=== PATIENT | male | born 1950 | race Caucasian/White ===

== ENCOUNTER 2020-09-24 08:43 | Observation (INO) ==
[2020-09-24 09:25] LABS: Basophils % 0.6 % (0.0-0.8); Eosinophils # 0.3 10*3/uL (0.0-0.87); Eosinophils % 3.9 % (0.00-10.9); Hematocrit 38.3 VOL% (42.0-52.0); Hemoglobin 13.5 GM/DL (14.0-18.0); Immature Granulocytes % 0.6 %; Immature Granulocytes Absolute 0.04 #; Lymphocytes # 1.7 10*3/uL (1.4-4.0); Lymphocytes % 25.7 % (21.2-54.2); Mean Corpuscular HGB Conc 35.2 GM/DL (32-36); Mean Corpuscular Volume 92.5 FL (87-102); Mean Platelet Volume 9.3 FL (9.6-12.0); Monocytes % 10.1 % (1.7-12.7); Neutrophils % 59.1 % (38.7-73.9); Platelet Count 190 T/CUMM (130-400); Red Blood Count 4.14 MC/CUMM (3.8-5.5); Red Cell Distribution Width 12.9 % (9.3-17.3); White Blood Count 6.4 T/CUMM (4-12)
[2020-09-24 09:37] LABS: PT Patient Result 10.8 SECS (9.8-11.9); Partial Thromboplastin Time 29.3 SECS (23.9-33.8)
[2020-09-24 09:47] LABS: Albumin 3.8 G/DL (3.4-5.0); Bilirubin,Total 0.5 MG/DL (0.2-1.0); Calcium 9.4 MG/DL (8.5-10.1); Osmolality,Calculated 279.7 MOS/KG (273-304); Total Protein 7.1 G/DL (6.4-8.3)
[2020-09-24] MEDS ORDERED: ENOXAPARIN 100 MG/ML SYRINGE SUBCUT STA (10:37)
[2020-09-24] MEDS ORDERED: ASPIRIN 325 MG TABLET PO STA (10:37)
[2020-09-24] MEDS ORDERED: ENOXAPARIN 60 MG/0.6 ML SYRINGE ONE (10:44)
[2020-09-24] MEDS ORDERED: ONDANSETRON 4 MG/2 ML VIAL IV PRN (12:09)
[2020-09-24] MEDS ORDERED: ZALEPLON 5 MG CAPSULE PO PRN (12:09)
[2020-09-24] MEDS ORDERED: hydrALAZINE 20 MG/1 ML VIAL IV PRN (12:09)
[2020-09-24] MEDS ORDERED: MAGNESIUM SULF RIDER 4 GM in PREMIX 1 EACH IV PRN (12:09)
[2020-09-24] MEDS ORDERED: MAGNESIUM SULF RIDER 2 GM in PREMIX 1 EACH IV PRN (12:09)
[2020-09-24] MEDS ORDERED: diphenhydrAMINE CAP 25 MG CAPSULE PO PRN (12:09)
[2020-09-24] MEDS ORDERED: LACTULOSE 20 GM/30 ML UDCUP PO PRN (12:09)
[2020-09-24] MEDS ORDERED: carvediloL 3.125 MG TABLET PO STA (12:20)
[2020-09-24] MEDS ORDERED: GLUCAGON 1 MG VIAL IM PRN (14:46)
[2020-09-24] MEDS ORDERED: DEXTROSE 50% 25 GM/50 ML VIAL IV PRN (14:46)
[2020-09-24] MEDS: amLODIPine 5 MG TABLET PO SCH (17:19)
[2020-09-24] MEDS: INSULIN REGULAR 100 UNIT/ML SUBCUT SCH ×2 (17:19→21:44)
[2020-09-24] MEDS ORDERED: DOXAZOSIN 1 MG TABLET PO SCH (21:00)
[2020-09-24] MEDS ORDERED: carvediloL 25 MG TABLET PO SCH (21:00)
[2020-09-24] MEDS ORDERED: MONTELUKAST 10 MG TABLET PO SCH (21:00)
[2020-09-24] MEDS: carvediloL 12.5 MG TABLET PO SCH (21:18)
[2020-09-25 05:43] LABS: Basophils % 0.6 % (0.0-0.8); Eosinophils # 0.3 10*3/uL (0.0-0.87); Eosinophils % 4.5 % (0.00-10.9); Hematocrit 39.3 VOL% (42.0-52.0); Hemoglobin 13.7 GM/DL (14.0-18.0); Immature Granulocytes % 0.3 %; Immature Granulocytes Absolute 0.02 #; Lymphocytes # 1.8 10*3/uL (1.4-4.0); Lymphocytes % 26.2 % (21.2-54.2); Mean Corpuscular HGB Conc 34.9 GM/DL (32-36); Mean Corpuscular Volume 92.9 FL (87-102); Mean Platelet Volume 9.5 FL (9.6-12.0); Monocytes % 10.6 % (1.7-12.7); Neutrophils % 57.8 % (38.7-73.9); Platelet Count 173 T/CUMM (130-400); Red Blood Count 4.23 MC/CUMM (3.8-5.5); Red Cell Distribution Width 12.7 % (9.3-17.3); White Blood Count 6.9 T/CUMM (4-12)
[2020-09-25 06:05] LABS: Albumin 3.5 G/DL (3.4-5.0); Bilirubin,Total 1.2 MG/DL (0.2-1.0); Calcium 9.1 MG/DL (8.5-10.1); Osmolality,Calculated 282.4 MOS/KG (273-304); Total Protein 6.6 G/DL (6.4-8.3)
[2020-09-25] MEDS: INSULIN REGULAR 100 UNIT/ML SUBCUT SCH ×2 (08:34→12:11)
[2020-09-25 08:36] VITALS: BP 173/82
[2020-09-25] MEDS ORDERED: ASPIRIN EC 81 MG TABLET PO SCH (09:00)
[2020-09-25] MEDS ORDERED: PANTOPRAZOLE 40 MG TABLET PO SCH (09:00)
[2020-09-25] MEDS ORDERED: OLMESARTAN 20 MG TABLET PO SCH (09:00)
[2020-09-25] MEDS ORDERED: CHOLECALCIFEROL 1,000 UNIT TABLET PO SCH (09:00)
[2020-09-25] MEDS ORDERED: SERTRALINE 50 MG TABLET PO SCH (09:00)
[2020-09-25] MEDS ORDERED: EZETIMIBE 10 MG TABLET PO SCH (09:00)
[2020-09-25] MEDS ORDERED: MULTIVITAMIN (BEROCCA) TABLET PO SCH (09:00)
[2020-09-25] MEDS: carvediloL 12.5 MG TABLET PO SCH (09:00)
[2020-09-25] MEDS ORDERED: PSYLLIUM HUSK 0.4 GM PO SCH (09:00)
[2020-09-25] MEDS ORDERED: GLUCOSAMINE 500 MG TABLET PO SCH (09:00)
[2020-09-25] MEDS: amLODIPine 5 MG TABLET PO SCH (09:01)
== END 2020-09-25 11:58 | disposition home or self-care (01) ==
LOC: N.ED 08:43 → N.EDINP 08:43 → N.TELEN 15:13
PROVIDERS: ADMIT Internal Medicine Cardiovascular Disease; ATTEND Internal Medicine Cardiovascular Disease